=== PATIENT | male | born 1980 | race Caucasian/White ===

== ENCOUNTER 2016-12-12 11:23 | Emergency (ER) | payer MEDICARE | END 2016-12-12 12:45 | disposition home or self-care (01) | LOC: ER1 11:23 | DX: S63.602A Unspecified sprain of left thumb, initial encounter (principal); W19.XXXA Unspecified fall, initial encounter; Y92.009 Unspecified place in unspecified non-institutional (private) residence as the place of occurrence of the external cause | CPT/HCPCS: 29125; 73110; 73130; 96372; 99283; J1885 ==